=== PATIENT | male | born 1980 ===

== ENCOUNTER 2018-07-28 09:52 | Emergency (ER) | payer OTHER ==
[2018-07-28 10:00] VITALS: BMI 35.5
--- NOTE | 2018-07-28 10:21 | ED PDOC ---
HPI: Chest Pain Time Seen by Provider: 07/28/18 10:05 Chief Complaint (Nursing): Chest Pain History Per: Patient Onset/Duration Of Symptoms: Other (2 months) Current Symptoms Are (Timing): Intermittent Episodes Severity: Mild Quality: Tightness Associated Symptoms: denies: Dyspnea Modifying Factors: None Exacerbating Factors: None Alleviating Factors: None Additional Complaint(s): Left sided chest pain intermittently x 2 months. Occurs when anxious or agitated. Not assoc with SOB or dizziness. Past Medical History Vital Signs: Last Vital Signs Temp 98.9 F 07/28/18 10:01 Pulse 83 07/28/18 10:01 Resp 20 07/28/18 10:01 BP 151/92 H 07/28/18 10:01 Pulse Ox 97 07/28/18 10:01 - Medical History PMH: HTN, Hypercholesterolemia - Family History Family History: States: Unknown Family Hx - Home Medications Home Medications: Ambulatory Orders Medication Instructions Recorded Amoxicillin/Potassium Clav 1 tab PO BID #20 tab 07/01/15 [Augmentin 500 mg-125 mg] Naproxen [Naprosyn] 500 mg PO BID PRN #30 tab 07/01/15 Non-Formulary 1 ea .ROUTE Q6 #1 ea 07/28/18 amLODIPine [Norvasc] 2.5 mg PO DAILY #30 tab 07/28/18 - Allergies Allergies/Adverse Reactions: Allergies Allergy/AdvReac Type Severity Reaction Status Date / Time No Known Allergies Allergy Verified 07/01/15 12:37 Review of Systems ROS Statement: Except As Marked, All Systems Reviewed And Found Negative Cardiovascular: Positive for: Chest Pain. Negative for: Palpitations Respiratory: Negative for: Shortness of Breath Physical Exam - Reviewed Nursing Documentation Reviewed: Yes Vital Signs Reviewed: Yes - Physical Exam Appears: Positive for: Non-toxic, No Acute Distress Head Exam: Positive for: ATRAUMATIC, NORMAL INSPECTION, NORMOCEPHALIC Skin: Positive for: Normal Color, Warm, DRY Eye Exam: Positive for: EOMI, Normal appearance, PERRL ENT: Positive for: Normal ENT Inspection Neck: Positive for: Normal, Painless ROM Cardiovascular/Chest: Positive for: Regular Rate, Rhythm Respiratory: Positive for: CNT, Normal Breath Sounds Gastrointestinal/Abdominal: Positive for: Normal Exam, Soft Back: Positive for: Normal Inspection Extremity: Positive for: Normal ROM Neurological/Psych: Positive for: Awake, Alert, Normal Tone - Laboratory Results Result Diagrams: 07/28/18 10:40 07/28/18 10:40 - ECG O2 Sat by Pulse Oximetry: 97 Disposition - Clinical Impression Clinical Impression: Chest pain, Hypertension - Patient ED Disposition Is Patient to be Admitted: No Counseled Patient/Family Regarding: Studies Performed, Diagnosis, Need For Followup, Rx Given - Disposition Referrals: formerly [facility] [Outside] Disposition: Routine/Home Disposition Time: 11:27 Condition: FAIR Prescriptions: amLODIPine [Norvasc] 2.5 mg PO DAILY #30 tab Non-Formulary 1 ea .ROUTE Q6 #1 ea Instructions: High Blood Pressure in Adults, Chest Pain Forms: [facility] (Danish)
[2018-07-28 10:54] LABS: BASO % 0.6 % (0.0-2.0); EOS # 0.2 K/uL (0.0-0.7); EOS % 2.7 % (0.0-4.0); HEMOGLOBIN 14.1 g/dL (12.0-18.0); LYMPH # 2.4 K/uL (1.0-4.3); LYMPH % 32.7 % (20.0-40.0); MEAN CELL VOLUME 86.6 fl (80.0-94.0); MEAN CORPUSCULAR HEMOGLOBIN 28.7 pg (27.0-31.0); MEAN CORPUSCULAR HGB CONC 33.2 g/dL (33.0-37.0); MEAN PLATELET VOLUME 8.2 fl (7.2-11.7); MONO # 0.7 K/uL (0.0-0.8); MONO % 9.3 % (0.0-10.0); NEUT # 3.9 K/uL (1.8-7.0); NEUT % 54.7 % (50.0-75.0); RBC 4.89 Mil/uL (4.40-5.90); RED CELL DISTRIBUTION WIDTH 16.2 % (11.5-14.5); WHITE BLOOD COUNT 7.2 K/uL (4.8-10.8)
[2018-07-28 11:10] LABS: ALB/GLOB RATIO 1.3 (1.0-2.1); ALBUMIN 4.5 g/dL (3.5-5.0); ALT/SGPT 54 U/L (21-72); AST/SGOT 37 U/L (17-59); BLOOD UREA NITROGEN 15 mg/dl (9-20); CALCIUM 8.5 mg/dL (8.4-10.2); GFR NON-AFRICAN AMERICAN > 60
[2018-07-28 11:49] VITALS: BP 151/99; PULSE 90; RESP 16; TEMP 98.2; O2SAT 98
--- NOTE | 2018-07-28 11:54 | RAD ---
HISTORY: Chest pain COMPARISON: None available. TECHNIQUE: Chest PA and lateral, 2 views FINDINGS: On a toney limited by habitus. LUNGS: No focal consolidation. Please note that chest x-ray has limited sensitivity for the detection of pulmonary masses. PLEURA: No significant pleural effusion identified. No definite pneumothorax . CARDIOVASCULAR: The cardiomediastinal silhouette appears within normal limits of size. No atherosclerotic calcification present. OSSEOUS STRUCTURES: No acute osseous abnormality identified. VISUALIZED UPPER ABDOMEN: Unremarkable. OTHER FINDINGS: None. IMPRESSION: No acute findings identified.
--- NOTE | 2018-07-28 19:03 | CARD ---
APPROVED REPORT Date of service: 07/28/2018 EKG Measurement Heart [id number] <Conclusion> Normal sinus rhythm Normal ECG
== END 2018-07-28 11:49 | disposition home or self-care (01) ==
LOC: H.ER 09:52
DX: R07.9 Chest pain, unspecified (principal); I10 Essential (primary) hypertension